=== PATIENT | female | born 1950 | race Caucasian/White ===

== ENCOUNTER → 2024-10-10 | Outpatient (CLI) | payer OTHER ==
--- NOTE | 2024-10-10 17:04 | HMCIMG ---
US BREAST COMPLETE UNILATERAL REASON: UNSP LUMP. COMPARISON: Mammogram from 08/17/2024 TECHNIQUE: Left breast ultrasound study was performed. FINDINGS: There is left breast cyst versus intramammary lymph node noted at 1:00 measuring 4.2 x 2.8 mm. Left breast axillary lymph node is seen measuring 4 x 3 x 3 mm at 2:00. IMPRESSION: Findings as described above. CATEGORY 2: BENIGN FINDINGS Recommend monthly self breast exam as well as annual clinical examination.
== END | disposition home or self-care (01) ==
LOC: RAH 15:04
PROVIDERS: ATTEND Internal Medicine
DX: N63.20 Unspecified lump in the left breast, unspecified quadrant (principal); R59.0 Localized enlarged lymph nodes
CPT/HCPCS: 76641